=== PATIENT | female | born 1965 | race Caucasian/White ===

== ENCOUNTER 2018-05-10 23:29 | Emergency (ER) | payer BC, SELFPAY ==
[2018-05-10] MEDS ORDERED: oFLOXacin 0.3% Opth 5 ML BOT ONE (23:49)
[2018-05-10] MEDS ORDERED: Tobramycin/dex OPTH 2.5 ML BOT ONE ×2 (23:51→23:54)
== END 2018-05-11 00:04 | disposition home or self-care (01) ==
LOC: BURERS 23:29
DX: T16.1XXA Foreign body in right ear, initial encounter (principal)
CPT/HCPCS: 69200